=== PATIENT | female | born 1975 | race African-American/Black ===

== ENCOUNTER → 2016-12-12 | Outpatient (CLI) | payer BC ==
[~2016-12-12] MED LIST: INDOMETHACIN25 MG PO
--- NOTE | ~2016-12-12 | MY11 ---
[facility] A Service [facility] RADIOLOGY TEXT RESULTS PATIENT: GEORGE PARDO LOCATION: [facility] : [birth year] UNIT #: [id number] AGE: [address]: Jair Brown MD SEX: F ORDER DR: [id number] [address] [address] [id number] O MR#: [id number] Acc #: [id number] NAME: GEORGE PARDO : 1975 SEX: F STUDY DATE/TIME: 12/12/2016 8:59 UNIT: [facility] ROOM: STUDY DESCRIPTION: MY Mammogram Screening Dig Gianfranco Attending Physician: Jair Brown Sr., M.D. Referring Physician: Jair Brown Sr., M.D. Ordering Physician: Jair Brown Sr., M.D. Primary Care Physician: Jair Brown Sr., M.D. MEDICAL IMAGING REPORT This report is preliminary unless electronic signature is present. EXAM Digital screening mammogram, 12/12/2016 HISTORY 41-year-old woman baseline mammogram. No risk elevation. COMPARISON None FINDINGS Digital imaging of each breast was completed utilizing screening protocol. Review includes FDA-approved CAD device. Breast parenchyma is moderately dense with fibroglandular parenchymal pattern noted. There are scattered faint calcifications in each breast although these are somewhat dominant in the left breast. These include loosely grouped calcifications noted deep central left breast location visualized on the MLO view only. Overall characteristics including distribution favor benign etiology. However, as this represents the patient's initial baseline exam, additional left breast imaging is recommended to include true lateral projection and high-resolution spot compression views of the left breast. This should provide an optimal baseline for future reference. I see no dominant mass in either breast and no architectural disturbance. IMPRESSION Incomplete mammographic evaluation. Additional left breast imaging is recommended. See complete report with recommendations. Patients over the age of 40 are entered into a reminder system with target due date for the next mammogram. A result letter will also be sent to the patient. BIRADS 0 Incomplete: Need Additional Imaging Evaluation and/or Prior Mammograms for Comparison [facility] A Service of [facility] RADIOLOGY TEXT RESULTS PATIENT: GEORGE PARDO LOCATION: [facility] : [birth year] UNIT #: [id number] AGE: [address]: Jair Brown MD SEX: F ORDER DR: Dictated by... Lenin Dunaway M.D. THIS IS AN ELECTRONICALLY VERIFIED REPORT Lenin Dunaway M.D. at 12/12/2016 2:19 PM Daisy TD: 12/12/2016 10:31 JOB #: [id number] MEDICAL IMAGING REPORT Page 1 of 1
== END | disposition home or self-care (01) ==
LOC: SMAM 08:18
DX: Z12.31 Encounter for screening mammogram for malignant neoplasm of breast (principal); R92.1 Mammographic calcification found on diagnostic imaging of breast
CPT/HCPCS: G0202

== ENCOUNTER → 2016-12-26 | Outpatient (CLI) | payer BC ==
--- NOTE | ~2016-12-26 | MY24 ---
[facility] A Service of [facility] RADIOLOGY TEXT RESULTS PATIENT: GEORGE PARDO LOCATION: [facility] : [birth year] UNIT #: [id number] AGE: [address]: Jair Brown MD SEX: F ORDER DR: [id number] [facility]. [place], [place] [address] [id number] O MR#: [id number] Acc #: [id number] NAME: GEORGE PARDO : 1975 SEX: F STUDY DATE/TIME: 12/26/2016 12:48 UNIT: [facility] ROOM: STUDY DESCRIPTION: ANURAG MICHELLE W/ CAD UNI LT Attending Physician: Jair Brown Sr., M.D. Referring Physician: Jair Brown Sr., M.D. Ordering Physician: Jair Brown Sr., M.D. Primary Care Physician: Jair Brown Sr., M.D. MEDICAL IMAGING REPORT This report is preliminary unless electronic signature is present EXAM Left digital diagnostic mammogram COMPARISON Baseline screening mammogram dated December 12, 2016. INDICATIONS 41-year-old female with left breast microcalcifications on baseline screening mammogram. Additional imaging evaluation was recommended. FINDINGS Full field ML view and spot magnification MLO, ML and CC views were performed. There are 2 groupings of microcalcifications in the left breast, one of which localizes to the 6 o'clock position and the other of which localizes to the 10 o'clock position. These are loosely grouped and do not meet criteria for a cluster and are therefore benign by imaging criteria. IMPRESSION No mammographic evidence of malignancy in the left breast. Continued annual screening mammography and clinical breast exam are recommended. Findings and recommendations were discussed with the patient today. Patients over the age of 40 are entered into a reminder system with target due date for the next mammogram. A result letter will also be sent to the patient. BIRADS: 2 Benign Finding Dictated by... [facility] A Service [facility] RADIOLOGY TEXT RESULTS PATIENT: GEORGE PARDO LOCATION: [facility] : 77 UNIT #: [id number] AGE: [address]: Jair Brown MD SEX: F ORDER DR: Brendan Zurita M.D. THIS IS AN ELECTRONICALLY VERIFIED REPORT Brendan Zurita M.D. at 12/28/2016 11:46 AM BLM/psc TD: 12/26/2016 23:05 JOB #: [id number] MEDICAL IMAGING REPORT Page 1 of 1 COPY
== END | disposition home or self-care (01) ==
LOC: CMAM 12:22
DX: R92.8 Other abnormal and inconclusive findings on diagnostic imaging of breast (principal)
CPT/HCPCS: G0206